=== PATIENT | male | born 1965 | race Caucasian/White ===

== ENCOUNTER 2017-10-16 11:40 | Emergency (ER) | payer OTHER ==
[2017-10-16] MEDS ORDERED: Metoclopramide IV* 5 MG/ML 2 ML VIAL IV ONE (12:07)
[2017-10-16] MEDS ORDERED: diPHENhydraMINE IV* 25 MG in NS 0.9% 50 ML* 50 ML IVPB ONE (12:07)
[2017-10-16] MEDS ORDERED: Meclizine TAB* 12.5 MG PO ONE (12:07)
[2017-10-16] MEDS ORDERED: NS 0.9% 1000 ML* 1,000 ML IV ONE (12:08)
--- NOTE | 2017-10-16 12:29 | RAD ---
INDICATION: Dizziness. COMPARISON: There are no prior studies available for comparison. TECHNIQUE: A portable view of the chest was obtained. FINDINGS: Cardiac and mediastinal contours appear to be within normal limits. The lungs are underinflated and clear. No pleural effusion is seen. IMPRESSION: NO EVIDENCE FOR ACUTE DISEASE.
[2017-10-16 12:34] LABS: ABS Basophils 0.1 10^3/ul (0-0.2); ABS Eosinophils 0.1 10^3/ul (0-0.6); ABS Lymphocytes 1.8 10^3/ul (1.0-4.8); ABS Monocytes 0.5 10^3/ul (0-0.8); ABS Neutrophils 4.8 10^3/ul (1.5-7.7); ABS Nucleated RBC 0 10^3/ul; Eosinophil % 1.6 % (0-6); Hematocrit 46 % (42-52); Hemoglobin 15.8 g/dl (14.0-18.0); Lymphocyte % 24.6 % (25-47); Mean Corpuscular HGB Conc 34 g/dl (31-36); Mean Corpuscular Hemoglobin 30 pg (27-31); Mean Corpuscular Volume 87 fL (80-94); Mean Platelet Volume 8 um3 (7.4-10.4); Nucleated Red Blood Cells % 0.3; Platelet Count 348 10^3/ul (150-450); Red Blood Count 5.32 10^6/ul (4.0-5.4); Red Cell Distribution Width 15 % (10.5-15); White Blood Count 7.3 10^3/ul (3.5-10.8)
[2017-10-16 12:38] LABS: Urine Appearance Cloudy; Urine Blood Negative (Negative); Urine Color Yellow; Urine Ketones Negative (Negative); Urine Protein Negative (Negative); Urine Specific Gravity 1.016 (1.010-1.030); Urine Urobilinogen Negative (Negative)
[2017-10-16 12:59] LABS: EGFR Non-African American 67.5 (>60)
--- NOTE | 2017-10-16 13:02 | RAD ---
INDICATION: Dizziness. COMPARISON: There are no prior studies available for comparison. TECHNIQUE: Contiguous axial sections of the brain were obtained from the skull base to the vertex without contrast. FINDINGS: The ventricles, cisterns and sulci are within normal limits. No significant focal abnormality or mass effect is seen. There is no evidence for hemorrhage. No significant focal osseous abnormality is seen. The visualized portion of the paranasal sinuses and mastoid air cells appear clear. IMPRESSION: NO EVIDENCE FOR ACUTE INTRACRANIAL ABNORMALITY.
[2017-10-16] MEDS ORDERED: Potassium Chlor TAB* 20 MEQ TAB.ER PO ONE (15:42)
[2017-10-16 15:57] VITALS: BP 144/87
--- NOTE | 2017-10-17 08:10 | ED ---
Duran Robertson Angela, scribed for Jas Oshea MD on 10/16/17 at 1202 . Dizziness - HPI Summary HPI Summary: This pt is a 51 y/o male presenting to [facility] via EMS from [facility] for a CT and neuro evaluation. Pt reports he has had dizziness for 20 years now and this is when his headaches began. Pt states he has had a headache since then every day, which waxes and wanes. He notes that today he woke up with more dizziness, was disoriented, and was gasping for air. His headache is rated 1-2 out of 10 in severity. He additionally notes both arms were tingling and numb. He reports his last CT was 2 years ago. 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 Pt is currently on testosterone topical PMHx: low testosteron, GERD, HTN. - History Of Current Complaint Stated Complaint: HEAD ACHE Time Seen by Provider: 10/16/17 11:48 Hx Obtained From: Patient Onset/Duration: Still Present Timing: Days Severity Initially: Moderate Severity Currently: Moderate Character: Dizzy Aggravating Factor(s): Nothing Alleviating Factor(s): Nothing Associated Signs And Symptoms: Positive: SOB, Other: - POS: disoriented, both arms tingling and numb - Allergies/Home Medications Allergies/Adverse Reactions: Allergies Allergy/AdvReac Type Severity Reaction Status Date / Time Clarithromycin [From Biaxin] Allergy Altered Verified 10/16/17 12:01 Mental Status Statins Allergy Muscle Ache Verified 10/16/17 12:01 Home Medications: Home Medications Amitriptyline TAB* [Elavil TAB*] 100 mg PO DAILY 10/16/17 [History Confirmed ] Hsykleqlhh-Yatquhtjfjnrb-Rgjaj [Butalbital/Acetaminophen/ 50-325-40 mg-] 1 cap PO Q4HR PRN 10/16/17 [History Confirmed 10/16/17] Cyclobenzaprine TAB* [Flexeril 10 MG TAB*] 10 mg PO TID PRN 10/16/17 [History Confirmed 10/16/17] Ginkgo Biloba 60 mg PO BID 10/16/17 [History Confirmed 10/16/17] HYDROmorphone TAB* [Dilaudid TAB*] 4 mg PO Q6H PRN MDD 20 mg 10/16/17 [History Confirmed 10/16/17] Nadolol & Bendroflumethiazide [Nadolol/Bendroflumethiazi] 0.5 tab PO DAILY 10/16 [History Confirmed 10/16/17] Omeprazole CAP* [Prilosec CAP* 20 MG] 40 mg PO DAILY 10/16/17 [History Confirmed 10/16/17] Testosterone [Testim] 1 % TOPICAL QAM 10/16/17 [History Confirmed 10/16/17] Venlafaxine ER (NF) [Effexor ER (NF)] 150 mg PO DAILY 10/16/17 [History Confirmed 10/16/17] Venlafaxine EXT RELEASE CAP* [Effexor Xr CAP*] 75 mg PO DAILY 10/16/17 [History Confirmed 10/16/17] PMH/Surg Hx/FS Hx/Imm Hx Endocrine/Hematology History: Denies: Hx Diabetes Cardiovascular History: Reports: Hx Hypertension GI History: Reports: Hx Gastroesophageal Reflux Disease, Hx Ulcer History: Reports: Hx Kidney Stones Musculoskeletal History: Reports: Other Musculoskeletal History - costochondritis Neurological History: Reports: Other Neuro Impairments/Disorders - brain aneurysm, chiari malformation, tortured basal artery Psychiatric History: Reports: Hx Depression Infectious Disease History: Denies: Traveled Outside the [place] in Last 30 Days - Family History Known Family History: Positive: Hypertension Negative: Diabetes - Social History Occupation: Employed Full-time - audiovisual job at [employer] Alcohol Use: Occasionally Substance Use Type: Reports: None Smoking Status (MU): Never Smoked Tobacco Review of Systems Negative: Fever, Chills ENT: Negative Positive: Shortness Of Breath Gastrointestinal: Negative Genitourinary: Negative Neurological: Other - POS: dizziness, disoriented Positive: Headache All Other Systems Reviewed And Are Negative: Yes Physical Exam - Summary Physical Exam Summary: VITAL SIGNS: Reviewed. GENERAL: Patient is a well-developed and nourished male who is lying comfortable in the stretcher. Patient is not in any acute respiratory distress. HEAD AND FACE: No signs of trauma. No ecchymosis, hematomas or skull depressions. No sinus tenderness. EYES: PERRLA, EOMI x 2, No injected conjunctiva, no nystagmus. No photophobia. EARS: Hearing grossly intact. Ear canals and tympanic membranes are within normal limits. MOUTH: Oropharynx within normal limits. NECK: Supple, trachea is midline, no adenopathy, no JVD, no carotid bruit, no c- spine tenderness, neck with full ROM. No meningeal signs, no Kernig's or brudzinskis signs. CHEST: Symmetric, no tenderness at palpation LUNGS: Clear to auscultation bilaterally. No wheezing or crackles. CVS: Regular rate and rhythm, S1 and S2 present, no murmurs or gallops appreciated. ABDOMEN: Soft, non-tender. No signs of distention. No rebound no guarding, and no masses palpated. Bowel sounds are normal. EXTREMITIES: FROM in all major joints, no edema, no cyanosis or clubbing. NEURO: Alert and oriented x 3. No acute neurological deficits. Speech is normal and follows commands. SKIN: Dry and warm GCS: 15 Triage Information Reviewed: Yes Vital Signs On Initial Exam: Initial Vitals Temp Pulse Resp BP Pulse Ox 99.3 F 81 19 150/84 99 10/16/17 11:47 10/16/17 11:47 10/16/17 11:47 10/16/17 11:47 10/16/17 11:47 Vital Signs Reviewed: Yes Diagnostics - Vital Signs Vital Signs Temp Pulse Resp BP Pulse Ox 10/16/17 15:57 98.7 F 85 18 144/87 100 10/16/17 15:45 144/87 10/16/17 15:35 91 12 96 10/16/17 15:00 87 12 97 10/16/17 14:00 123/74 10/16/17 13:33 86 16 120/83 98 10/16/17 13:31 86 17 130/84 98 10/16/17 13:28 129/70 10/16/17 13:21 83 17 99 10/16/17 13:00 85 20 99 10/16/17 12:30 85 11 109/78 98 10/16/17 12:16 80 10 130/83 99 10/16/17 12:14 79 15 124/87 100 10/16/17 12:00 84 18 128/84 100 10/16/17 11:55 74 22 99 10/16/17 11:54 150/84 10/16/17 11:47 99.3 F 81 19 150/84 99 - Laboratory Lab Results: Lab Results 10/16/17 10/16/17 10/16/17 Range/Units 12:05 12:15 12:15 WBC 7.3 (3.5-10.8) 10^3/ul RBC 5.32 (4.0-5.4) 10^6/ul Hgb 15.8 (14.0-18.0) g/dl Hct 46 (42-52) % MCV 87 (80-94) fL MCH 30 (27-31) pg MCHC 34 (31-36) g/dl RDW 15 (10.5-15) % Plt Count 348 (150-450) 10^3/ul MPV 8 (7.4-10.4) um3 Neut % (Auto) 66.2 (38-83) % Lymph % (Auto) 24.6 L (25-47) % Cuming % (Auto) 6.4 (1-9) % Eos % (Auto) 1.6 (0-6) % Baso % (Auto) 1.2 (0-2) % Absolute Neuts (auto) 4.8 (1.5-7.7) 10^3/ul Absolute Lymphs (auto) 1.8 (1.0-4.8) 10^3/ul Absolute Monos (auto) 0.5 (0-0.8) 10^3/ul Absolute Eos (auto) 0.1 (0-0.6) 10^3/ul Absolute Basos (auto) 0.1 (0-0.2) 10^3/ul Absolute Nucleated RBC 0 10^3/ul Nucleated RBC % 0.3 Sodium 136 (133-145) mmol/L Potassium TNP Chloride 95 L (101-111) mmol/L Carbon Dioxide 29 (22-32) mmol/L Anion Gap 12 H (2-11) mmol/L BUN 14 (6-24) mg/dL Creatinine 1.14 (0.67-1.17) mg/dL Est GFR ( Amer) 86.8 (>60) Est GFR (Non-Af Amer) 67.5 (>60) BUN/Creatinine Ratio 12.3 (8-20) Glucose 117 H (70-100) mg/dL Calcium 10.0 (8.6-10.3) mg/dL Total Bilirubin 0.50 (0.2-1.0) mg/dL AST TNP ALT 19 (7-52) U/L Alkaline Phosphatase 129 H (34-104) U/L Total Protein 7.7 (6.4-8.9) g/dL Albumin 4.5 (3.2-5.2) g/dL Globulin 3.2 (2-4) g/dL Albumin/Globulin Ratio 1.4 (1-3) TSH 3.00 (0.34-5.60) mcIU/mL Urine Color Yellow Urine Appearance Cloudy Urine pH 5.0 (5-9) Ur Specific [place] 1.016 (1.010-1.030) Urine Protein Negative (Negative) Urine Ketones Negative (Negative) Urine Blood Negative (Negative) Urine Nitrate Negative (Negative) Urine Bilirubin Negative (Negative) Urine Urobilinogen Negative (Negative) Ur Leukocyte Esterase Negative (Negative) Urine Glucose Negative (Negative) 10/16/17 Range/Units 14:25 WBC (3.5-10.8) 10^3/ul RBC (4.0-5.4) 10^6/ul Hgb (14.0-18.0) g/dl Hct (42-52) % MCV (80-94) fL MCH (27-31) pg MCHC (31-36) g/dl RDW (10.5-15) % Plt Count (150-450) 10^3/ul MPV (7.4-10.4) um3 Neut % (Auto) (38-83) % Lymph % (Auto) (25-47) % Cuming % (Auto) (1-9) % Eos % (Auto) (0-6) % Baso % (Auto) (0-2) % Absolute Neuts (auto) (1.5-7.7) 10^3/ul Absolute Lymphs (auto) (1.0-4.8) 10^3/ul Absolute Monos (auto) (0-0.8) 10^3/ul Absolute Eos (auto) (0-0.6) 10^3/ul Absolute Basos (auto) (0-0.2) 10^3/ul Absolute Nucleated RBC 10^3/ul Nucleated RBC % Sodium (133-145) mmol/L Potassium 2.9 L Chloride (101-111) mmol/L Carbon Dioxide (22-32) mmol/L Anion Gap (2-11) mmol/L BUN (6-24) mg/dL Creatinine (0.67-1.17) mg/dL Est GFR ( Amer) (>60) Est GFR (Non-Af Amer) (>60) BUN/Creatinine Ratio (8-20) Glucose (70-100) mg/dL Calcium (8.6-10.3) mg/dL Total Bilirubin (0.2-1.0) mg/dL AST ALT (7-52) U/L Alkaline Phosphatase (34-104) U/L Total Protein (6.4-8.9) g/dL Albumin (3.2-5.2) g/dL Globulin (2-4) g/dL Albumin/Globulin Ratio (1-3) TSH (0.34-5.60) mcIU/mL Urine Color Urine Appearance Urine pH (5-9) Ur Specific [place] (1.010-1.030) Urine Protein (Negative) Urine Ketones (Negative) Urine Blood (Negative) Urine Nitrate (Negative) Urine Bilirubin (Negative) Urine Urobilinogen (Negative) Ur Leukocyte Esterase (Negative) Urine Glucose (Negative) Result Diagrams: 10/16/17 12:15 10/16/17 14:25 Lab Statement: Any lab studies that have been ordered have been reviewed, and results considered in the medical decision making process. - Radiology Chest XR Xray Interpretation: No Acute Changes - IMPRESSION: No evidence for acute disease. Dr. Oshea has reviewed this radiology report. Radiology Interpretation Completed By: Radiologist - CT Brain CT CT Interpretation: No Acute Changes - IMPRESSION: No evidence for acute intracranial abnormality. Dr. Oshea has reviewed this radiology report. CT Interpretation Completed By: Radiologist - EKG 12:19 Cardiac Rate: NL EKG Rhythm: Sinus Rhythm - at 80 bpm EKG Interpretation: No ST elevation. Diffuse T wave abnormalities. Dizzy Course/Dx - Course Course Of Treatment: This pt is a 51 y/o male presenting to [facility] via EMS from [facility] for a CT and neuro evaluation. Pt reports he has had dizziness for 20 years now and this is when his headaches began. Pt states he has had a headache since then every day, which waxes and wanes. He notes that today he woke up with more dizziness, was disoriented, and was gasping for air. His headache is rated 1-2 out of 10 in severity. He additionally notes both arms were tingling and numb. He reports his last CT was 2 years ago. 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 Pt is currently on testosterone topical. PMHx: low testosteron, GERD, HTN. Test results without any significant abnormalities except for potassium of 2.9, for which he was given potassium chloride. Urinalysis is negative for UTI. Chest XR shows no evidence for acute disease. Head CT reveals no evidence for acute intracranial abnormality. The pt was also given meclizine and his symptoms improved. At this point the pt is asymptomatic, he is ambulating without a headache or dizziness. Therefore, he will be discharged to home with follow up from his PCP. - Diagnoses Differential Diagnosis/HQI/PQRI: Benign Paroxysmal Positional Vertigo, CVA, Dysrhythmia, Seizure, Transient Ischemic Attack, Vasovagal Reaction Provider Diagnoses: Vertigo, Headache Discharge - Discharge Plan Condition: Stable Disposition: HOME Prescriptions: Meclizine TAB* [Antivert 12.5 TAB*] 25 mg PO TID PRN #30 tab PRN Reason: Vertigo Patient Education Materials: Vertigo (ED) Referrals: No Primary Care Phys,NOPCP [Primary Care Provider] - Additional Instructions: Please follow up with your primary care provider. RETURN TO THE ED FOR ANY WORSENING SYMPTOMS. The documentation as recorded by the Duran viveros Angela accurately reflects the service I personally performed and the decisions made by , Jas Oshea MD.
== END 2017-10-16 15:57 | disposition home or self-care (01) ==
LOC: ED 11:40
DX: R42 Dizziness and giddiness (principal); R51 Headache; R06.02 Shortness of breath; Z87.19 Personal history of other diseases of the digestive system; Z86.79 Personal history of other diseases of the circulatory system
CPT/HCPCS: 36415; 70450; 71045; 80053; 81003; 84443; 85025; 93005; 96365; 96366; 99283; A9270-GY; J1200; J2765